=== PATIENT | female | born 1930 | race Caucasian/White ===

== ENCOUNTER 2021-06-16 11:21 | Emergency (ER) | payer MEDICARE ==
[2021-06-16] MEDS ORDERED: HYDROCODON-ACE1 EAC4 PO (15:59)
== END 2021-06-16 17:25 | disposition home or self-care (01) ==
LOC: ER1 11:21
DX: S22.089A Unspecified fracture of T11-T12 vertebra, initial encounter for closed fracture (principal); M51.36 Other intervertebral disc degeneration, lumbar region; W19.XXXA Unspecified fall, initial encounter
CPT/HCPCS: 72131; 99283

== ENCOUNTER 2022-08-09 11:30 | Inpatient (IN) | payer MEDICARE ==
[~2022-08-09] VITALS: Ht 152.4 cm; Wt 68.0 kg
[~2022-08-09 11:30] MED LIST: AMOXICILLIN875 MG PO; HYDROCODON-ACE1 EAC4 PO; MEDROL4 MG PO
[2022-08-09 12:43] LABS: HEMOGLOBIN 14.4 gm/dl (12.3-15.3); RED BLOOD COUNT 4.88 M/UL (4.00-5.10); WHITE BLOOD COUNT 12.2 K/UL (4.5-11.0)
[2022-08-11 02:11] LABS: HEMOGLOBIN 14.2 gm/dl (12.3-15.3); RED BLOOD COUNT 4.88 M/UL (4.00-5.10)
[2022-08-11 02:12] LABS: WHITE BLOOD COUNT 8.3 K/UL (4.5-11.0)
[2022-08-11 07:12] LABS: CHOLESTEROL, TOTAL 246 mg/dL (100-199); FOLATE (FOLIC ACID), SERUM 11.6 ng/mL (>3.0); HDL CHOLESTEROL 58 mg/dL (>39); LDL CHOLESTEROL CALC 168 mg/dL (0-99); LDL/HDL RATIO 2.9 ratio (0.0-3.2); T. CHOL/HDL RATIO 4.2 ratio (0.0-4.4); TRIGLYCERIDES 113 mg/dL (0-149)
[2022-08-12 10:28] LABS: HEMOGLOBIN 15.2 gm/dl (12.3-15.3); RED BLOOD COUNT 5.12 M/UL (4.00-5.10); WHITE BLOOD COUNT 8.4 K/UL (4.5-11.0)
[2022-08-12] MEDS ORDERED: COREG3.125 MG PO (13:58)
[2022-08-12] MEDS ORDERED: LISINOPRIL5 MG PO (13:58)
[2022-08-12] MEDS ORDERED: ELIQUIS 2.5 MG2.5 MG PO (13:58)
[2022-08-12] MEDS ORDERED: LASIX20 MG PO (13:58)
== END 2022-08-12 14:53 | disposition home or self-care (01) | DRG 308 ==
LOC: ER1 11:30 → PROG CARE 20:15 → CDU 20:15 → PROG CARE 22:33
PROVIDERS: Internal Medicine Infectious Disease; Physician Assistant; ADMIT Internal Medicine
PROC: B24BZZZ Ultrasonography of Heart with Aorta (ICD-10-PCS; 2022-08-10)
PROC: 0HBT3ZX Excision of Right Breast, Percutaneous Approach, Diagnostic (ICD-10-PCS; principal; 2022-08-11)
DX: I48.0 Paroxysmal atrial fibrillation (principal); I50.23 Acute on chronic systolic (congestive) heart failure; Z66 Do not resuscitate; Z20.822 Contact with and (suspected) exposure to COVID-19; N17.9 Acute kidney failure, unspecified; M84.48XA Pathological fracture, other site, initial encounter for fracture; I11.0 Hypertensive heart disease with heart failure; D35.00 Benign neoplasm of unspecified adrenal gland; N64.9 Disorder of breast, unspecified; I08.3 Combined rheumatic disorders of mitral, aortic and tricuspid valves; I27.20 Pulmonary hypertension, unspecified; I42.9 Cardiomyopathy, unspecified; M19.90 Unspecified osteoarthritis, unspecified site; Z91.81 History of falling; Z87.81 Personal history of (healed) traumatic fracture; Z79.01 Long term (current) use of anticoagulants
CPT/HCPCS: ECHO; 36415; 71045; 80048; 80053; 80061; 81001; 82550; 82553; 82607; 82746; 83605; 83735; 83880; 84100; 84439; 84443; 84484; 84550; 85025; 85379; 87040; 87086; 88342; 88360; 93005; 93306; 94664; 96374; 96375; 97116; 97116-GP-CQ; 97161; 97166; 97530-GP-CQ; 99285; J1650; J1940; J2543; Q9965; U0002